=== PATIENT | male | born 1995 | race African-American/Black ===

== ENCOUNTER 2019-09-28 18:03 | Emergency (ER) | payer OTHER ==
[2019-09-28] MEDS ORDERED: ONDANSETRON 4 MG/2 ML VIAL ONE (18:54)
[2019-09-28] MEDS ORDERED: NA CHLORIDE 0.9% 1,000 ML ONE (18:54)
[2019-09-28] MEDS ORDERED: MORPHINE 2 MG/ML SYR ONE (18:55)
[2019-09-28] MEDS ORDERED: FAMOTIDINE 20 MG/2 ML VIAL IV ONE (18:55)
[2019-09-28 19:15] LABS: Absolute Lymphocytes (CBC) 0.8 K/uL (0.7-4.9); Basophils % 0.9 % (0-1.3); Hematocrit 48.6 % (39.6-49.0); Lymphocytes % 10.3 % (15.3-44.8); MPV 7.7 fL (7.6-11.3); RBC Red Blood Cell Count 5.54 M/uL (4.33-5.43)
[2019-09-28 19:33] LABS: ALT/SGPT 91 U/L (12-78); AST/SGOT 47 U/L (15-37); Albumin 4.2 g/dL (3.4-5.0); Alkaline Phosphatase 85 U/L (45-117); BUN Blood Urea Nitrogen 10 mg/dL (7-18); Bicarbonate 26 mmol/L (21-32); Bilirubin Direct 0.1 mg/dL (0-0.2); Bilirubin Total 0.4 mg/dL (0.2-1.0); Glucose Level 116 mg/dL (74-106); Lipase 61 U/L (73-393); Potassium 3.6 mmol/L (3.5-5.1); Protein, Total 7.9 g/dL (6.4-8.2); Sodium Level 138 mmol/L (136-145)
--- NOTE | 2019-09-28 20:09 | RAD REPORT ---
EXAM DESCRIPTION: CT - Abdomen Pelvis W Contrast - 09/28/2019 7:51 pm CLINICAL HISTORY: Abdominal pain COMPARISON: none. TECHNIQUE: Computed axial tomography of the abdomen pelvis was obtained. 100 cc Isovue-300 was admin istered intravenously. Oral contrast was not requested which limits evaluation of bowel. All CT scans are performed using dose optimization technique as appropriate and may include automated exposure control or mA/KV adjustment according to patient size. FINDINGS: The liver, spleen, pancreas, adrenal and kidneys appear unremarkable. There is no evidence of diverticulitis. The appendix is not clearly seen. No ascites A moderate amount stool is present throughout the colon IMPRESSION: Moderate amount of stool present throughout the colon
--- NOTE | 2019-09-28 20:30 | ER ---
Nurse's Notes [facility] Name: Greg Silva Age: 24 yrs Sex: Male : 1995 Arrival Date: 09/28/2019 Time: 18:11 Bed 5 Private MD: Diagnosis: Upper abdominal pain, unspecified;Nausea and vomiting Presentation: 09/28 18:12 Presenting complaint: EMS states: Pt from [facility], reports epigastric pain that ph radiates to boo upper quadrants and back, also reports N/V, denies diarrhea. Transition of care: patient was not received from another setting of care. Onset of symptoms was September 28, 2019. Risk Assessment: Do you want to hurt yourself or someone else? Patient reports no desire to harm self or others. Initial Sepsis Screen: Does the patient meet any 2 criteria? No. Patient's initial sepsis screen is negative. Does the patient have a suspected source of infection? No. Patient's initial sepsis screen is negative. Care prior to arrival: None. 18:12 Method Of Arrival: EMS: [facility] 18:12 Acuity: JARRED 3 ph Triage Assessment: 18:15 General: Appears in no apparent distress. uncomfortable, Behavior is cooperative, ph anxious, restless. Pain: Complains of pain in epigastric area Pain radiates to right upper quadrant and left upper quadrant. Neuro: Level of Consciousness is awake, alert, obeys commands, Oriented to person, place, time, situation. Cardiovascular: Capillary refill < 3 seconds in bilateral fingers Patient's skin is warm and dry. Respiratory: Airway is patent Respiratory effort is even, unlabored, Respiratory pattern is regular, symmetrical. GI: Abdomen is flat, non-distended, Reports upper abdominal pain, epigastric pain, nausea, vomiting, Patient currently denies diarrhea. Derm: Skin is intact, is healthy with good turgor, Skin is pink, warm \T\ dry. 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 - Social history:: Smoking status: Patient/guardian denies using tobacco. - Ebola Screening: : No symptoms or risks identified at this time. Screenin:06 Abuse screen: Denies threats or abuse. Denies injuries from another. Nutritional ph screening: No deficits noted. Tuberculosis screening: No symptoms or risk factors identified. Fall Risk None identified. Assessment: 19:07 General: SEE TRIAGE ASSESSMENT. ph 19:25 General: Appears in no apparent distress. uncomfortable, Behavior is calm, cooperative, jd3 appropriate for age. Pain: Denies pain. Neuro: Level of Consciousness is awake, alert, obeys commands, Oriented to person, place, time, situation. Cardiovascular: Denies chest pain, Capillary refill < 3 seconds Patient's skin is warm and dry. Respiratory: Airway is patent Respiratory effort is even, unlabored, Respiratory pattern is regular, symmetrical, Denies cough, shortness of breath. GI: Abdomen is round non-distended, Abd is soft and non tender X 4 quads. Patient currently denies nausea, vomiting. : No signs and/or symptoms were reported regarding the genitourinary system. EENT: No signs and/or symptoms were reported regarding the EENT system. Derm: Skin is intact, Skin is dry, Skin is normal, Skin temperature is warm. Musculoskeletal: Circulation, motion, and sensation intact. Range of motion: intact in all extremities. 19:25 Reassessment: Patient states feeling better. jd3 20:21 Reassessment: Patient appears in no apparent distress at this time. Patient and/or jd3 family updated on plan of care and expected duration. Pain level reassessed. Patient is alert, oriented x 3, equal unlabored respirations, skin warm/dry/pink. Patient denies pain at this time. Patient states feeling better. 20:45 Reassessment: Patient appears in no apparent distress at this time. Patient and/or aj1 family updated on plan of care and expected duration. Pain level reassessed. Patient is alert, oriented x 3, equal unlabored respirations, skin warm/dry/pink. pt reporting understanding of discharge instructions. awaiting transportation with care home guards. Vital Signs: 18:14 Pulse 83; Resp 20; Temp 98.5; Pulse Ox 100% on R/A; Weight 83.91 kg; Height 5 ft. 9 in. ph (175.26 cm); Pain 10/10; 18:18 BP 154 / 74; ss 19:26 Pulse 71; Resp 17 S; Pulse Ox 100% on R/A; Pain 0/10; jd3 20:20 BP 119 / 86; Pulse 75; Resp 18 S; Pulse Ox 100% on R/A; jd3 18:14 Body Mass Index 27.32 (83.91 kg, 175.26 cm) ph ED Course: 18:11 Patient arrived in ED. ph 18:13 Triage completed. ph 18:16 Arm band placed on Patient placed in an exam room, on a stretcher, on pulse oximetry. ph 18:32 Buck Hines PA is PHCP. cp 18:32 Ajay Delgado MD is Attending Physician. cp 18:49 Marleni Urrutia, RN is Primary Nurse. ph 19:06 Patient has correct armband on for positive identification. Call light in reach. Side ph rails up X2. Pulse ox on. NIBP on. Door closed. Noise minimized. Cool cloth applied. 19:06 Initial lab(s) drawn, by ms, sent to lab. Inserted saline lock: 18 gauge in right ph antecubital area, using aseptic technique. Blood collected. 19:51 CT Abd/Pelvis - IV Contrast Only In Process Unspecified. EDMS 19:55 Primary Nurse role handed off by Marleni Urrutia, DOMINIC jd3 19:55 Brett Reyes, DOMINIC is Primary Nurse. jd3 20:42 No provider procedures requiring assistance completed. IV discontinued, intact, aj1 bleeding controlled, No redness/swelling at site. Pressure dressing applied. Administered Medications: 19:04 Drug: NS 0.9% 1000 ml Route: IV; Rate: 1 bolus; Site: right antecubital; ph 20:44 Follow up: Response: No adverse reaction; IV Status: Completed infusion; IV Intake: aj1 1000ml 19:05 Drug: Zofran 4 mg Route: IVP; Site: right antecubital; ph 19:43 Follow up: Response: No adverse reaction jd3 19:05 Drug: morphine 2 mg Route: IVP; Site: right antecubital; ph 19:43 Follow up: Response: Pain is decreased; RASS: Alert and Calm (0) jd3 19:05 Drug: Pepcid 20 mg Route: IVP; Site: right antecubital; ph 19:43 Follow up: Response: No adverse reaction jd3 20:42 Drug: GI Cocktail without - (Maalox Suspension 30 ml, Lidocaine Liquid 2 % 15 aj1 ml) Route: PO; 21:05 Follow up: Response: No adverse reaction jd3 Intake: 20:44 IV: 1000ml; Total: 1000ml. aj1 Outcome: 20:29 Discharge ordered by MD. dorado 20:43 Condition: stable aj1 20:43 Discharge instructions given to patient, care home Guards Instructed on discharge instructions, follow up and referral plans. medication usage, Demonstrated understanding of instructions, follow-up care, medications, Prescriptions given X 2. 21:05 Patient left the ED. aj1 21:05 Discharged to with care home guards jd3 Signatures: Dispatcher [employer] EDMary Rangel RN RN aj1 Rossy Cabrera RN Marleni Robin RN RN Buck Hanson PA PA cp Davies, Jonathon, RN RN jd3 Corrections: (The following items were deleted from the chart) 19:43 19:43 Response: Pain is decreased jd3 jd3 19:43 19:25 Pain: Complains of pain in abdomen jd3 jd3 19:43 19:25 GI: Abdomen is round non-distended, Reports upper abdominal pain, jd3 jd3 19:44 19:26 Pulse 71bpm; Resp 17bpm; Spontaneous; Pulse Ox 100% RA; jd3 jd3
--- NOTE | 2019-09-28 20:31 | EDPHYS ---
Physician Documentation [facility] Name: Greg Silva Age: 24 yrs Sex: Male : 1995 Arrival Date: 09/28/2019 Time: 18:11 Bed 5 Private MD: ED Physician Ajay Delgado HPI: 09/28 18:36 This 24 yrs old Black Male presents to ER via EMS with complaints of Epigastric Pain. cp 18:36 The patient presents with abdominal pain in the epigastric area. cp 18:36 Onset: The symptoms/episode began/occurred today. The symptoms do not radiate. cp Associated signs and symptoms: Pertinent positives: nausea and vomiting, Pertinent negatives: anorexia, blood in stools, chest pain, constipation, diarrhea, dysuria, fever, testicular pain. The symptoms are described as constant. Severity of pain: in the emergency department the pain is unchanged. 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 - Social history:: Smoking status: Patient/guardian denies using tobacco. - Ebola Screening: : No symptoms or risks identified at this time. ROS: 18:40 Constitutional: Negative for body aches, chills, fever. cp 18:40 Eyes: Negative for injury, pain, redness, and discharge. cp 18:40 Cardiovascular: Negative for chest pain. 18:40 Respiratory: Negative for cough, shortness of breath, wheezing. 18:40 Abdomen/GI: Positive for abdominal pain, nausea and vomiting, Negative for diarrhea, constipation, black/tarry stool, rectal bleeding. 18:40 Back: Negative for radiated pain. 18:40 : Negative for urinary symptoms, testicular pain 18:40 Neuro: Negative for altered mental status, headache. 18:40 All other systems are negative. Exam: 18:45 Constitutional: The patient appears in no acute distress, alert, awake, cp non-diaphoretic, non-toxic, well developed, well nourished, uncomfortable. 18:45 Head/Face: Normocephalic, atraumatic. cp 18:45 Eyes: Periorbital structures: appear normal, Conjunctiva: normal, no exudate, no injection, Sclera: no appreciated abnormality, Lids and lashes: appear normal, bilaterally. 18:45 ENT: External ear(s): are unremarkable, Nose: is normal, Mouth: is normal, Posterior pharynx: is normal, airway is patent, no erythema, no exudate. 18:45 Chest/axilla: Inspection: normal, Palpation: is normal, no crepitus, no tenderness. 18:45 Cardiovascular: Rate: normal, Rhythm: regular. 18:45 Respiratory: the patient does not display signs of respiratory distress, Respirations: normal, no use of accessory muscles, no retractions, no splinting, no tachypnea, labored breathing, is not present, Breath sounds: are clear throughout, no decreased breath sounds, no stridor, no wheezing. 18:45 Abdomen/GI: Inspection: abdomen appears normal, Bowel sounds: active, all quadrants, Palpation: soft, in all quadrants, severe abdominal tenderness, in the epigastric area, rebound tenderness, is not appreciated, voluntary guarding, is elicited in the epigastric area. 18:45 Back: pain, is absent, ROM is normal. Vital Signs: 18:14 Pulse 83; Resp 20; Temp 98.5; Pulse Ox 100% on R/A; Weight 83.91 kg; Height 5 ft. 9 in. ph (175.26 cm); Pain 10/10; 18:18 BP 154 / 74; ss 19:26 Pulse 71; Resp 17 S; Pulse Ox 100% on R/A; Pain 0/10; jd3 20:20 BP 119 / 86; Pulse 75; Resp 18 S; Pulse Ox 100% on R/A; jd3 18:14 Body Mass Index 27.32 (83.91 kg, 175.26 cm) ph MDM: 18:34 Patient medically screened. cp 18:50 Differential diagnosis: appendicitis, bowel obstruction, cholecystitis, Cholelithiasis, cp gastritis, GI Bleed, pancreatitis, Peptic Ulcer Disease, Perf. Duodenal Ulcer, Perf. Gastric Ulcer, Testicular Torsion, Ureterolithiasis, urinary tract infection. 20:28 Data reviewed: vital signs, nurses notes, lab test result(s), radiologic studies, CT cp scan. 20:28 Counseling: I had a detailed discussion with the patient and/or guardian regarding: the cp historical points, exam findings, and any diagnostic results supporting the discharge/admit diagnosis, lab results, radiology results, to return to the emergency department if symptoms worsen or persist or if there are any questions or concerns that arise at home. Response to treatment: the patient's symptoms have markedly improved after treatment. Special discussion: Based on the patient's Hx, exam, and Dx evaluation, there is no indication for emergent surgery or inpatient Tx. It is understood by the patient/guardian that if the Sx's persist or worsen they need to return immediately for re-evaluation. ED course: VSS. Pain and nausea markedly improved, vomiting resolved. Will discharge back to correctional facility for continued monitoring. 09/28 18:36 Order name: Basic Metabolic Panel; Complete Time: 20:02 cp 09/28 20:02 Interpretation: Normal except: GLUC 116. cp 09/28 18:36 Order name: CBC with Diff; Complete Time: 20:22 cp 09/28 20:22 Interpretation: Normal except: RBC 5.54; HORTENCIA% 78.6; LYM% 10.3. cp 09/28 18:36 Order name: Creatinine for Radiology; Complete Time: 20:02 cp 09/28 18:36 Order name: Hepatic Function; Complete Time: 20:02 cp 09/28 18:36 Order name: Lipase; Complete Time: 20:02 cp 09/28 18:36 Order name: CT Abd/Pelvis - IV Contrast Only; Complete Time: 20:21 cp 09/28 18:36 Order name: IV Saline Lock; Complete Time: 19:07 cp 09/28 18:36 Order name: Labs collected and sent; Complete Time: 19:07 cp 09/28 20:23 Order name: PO challenge; Complete Time: 20:33 cp Administered Medications: 19:04 Drug: NS 0.9% 1000 ml Route: IV; Rate: 1 bolus; Site: right antecubital; ph 20:44 Follow up: Response: No adverse reaction; IV Status: Completed infusion; IV Intake: aj1 1000ml 19:05 Drug: Zofran 4 mg Route: IVP; Site: right antecubital; ph 19:43 Follow up: Response: No adverse reaction jd3 19:05 Drug: morphine 2 mg Route: IVP; Site: right antecubital; ph 19:43 Follow up: Response: Pain is decreased; RASS: Alert and Calm (0) jd3 19:05 Drug: Pepcid 20 mg Route: IVP; Site: right antecubital; ph 19:43 Follow up: Response: No adverse reaction jd3 20:42 Drug: GI Cocktail without - (Maalox Suspension 30 ml, Lidocaine Liquid 2 % 15 aj1 ml) Route: PO; 21:05 Follow up: Response: No adverse reaction jd3 Disposition: 09/28/19 20:29 Discharged to Home. Impression: Upper abdominal pain, unspecified, Nausea and vomiting. - Condition is Stable. - Discharge Instructions: Abdominal Pain, Adult, Constipation, Adult, Nausea and Vomiting, Adult. - Prescriptions for Pepcid 20 mg Oral Tablet - take 1 tablet by ORAL route every 12 hours for 10 days; 20 tablet. Zofran 4 mg Oral Tablet - take 1 tablet by ORAL route every 12 hours As needed; 20 tablet. - Medication Reconciliation Form, Thank You Letter, Antibiotic Education, Prescription Opioid Use form. - Follow up: Emergency Department; When: As needed; Reason: Worsening of condition. - Problem is new. - Symptoms have improved. Addendum: 10/01/2019 06:48 Co-signature as Attending Physician, Ajay Delgado MD I agree with the assessment and k dr plan of care. Signatures: Dispatcher [employer] EDMS Mary Cisse RN RN aj1 Ajay Delgado MD MD [facility] Marleni Urrutia RN RN ph Flora, Buck, PA PA Brett Frye RN jd3 Corrections: (The following items were deleted from the chart) 09/28 20:22 20:22 Normal except: RBC 5.54. cp cp 20:29 20:29 09/28/2019 20:29 Discharged to Home. Impression: Upper abdominal pain, cp unspecified. Condition is Stable. Forms are Medication Reconciliation Form, Thank You Letter, Antibiotic Education, Prescription Opioid Use. Follow up: Emergency Department; When: As needed; Reason: Worsening of condition. Problem is new. Symptoms have improved. cp 21:05 20:29 09/28/2019 20:29 Discharged to Home. Impression: Upper abdominal pain, aj1 unspecified; Nausea and vomiting. Condition is Stable. Discharge Instructions: Abdominal Pain, Adult, Constipation, Adult. Prescriptions for Pepcid 20 mg Oral Tablet - take 1 tablet by ORAL route every 12 hours for 10 days; 20 tablet, Zofran 4 mg Oral Tablet - take 1 tablet by ORAL route every 12 hours As needed; 20 tablet. and Forms are Medication Reconciliation Form, Thank You Letter, Antibiotic Education, Prescription Opioid Use. Follow up: Emergency Department; When: As needed; Reason: Worsening of condition. Problem is new. Symptoms have improved. cp
[2019-09-28] MEDS ORDERED: MAGNES/ALUMIN/SIMET 30ML UCUP ONE (20:37)
[2019-09-28] MEDS ORDERED: LIDOCAINE VISCOUS 2% SOLN 15 ML UDC ONE (20:37)
[2019-09-28 22:50] VITALS: TEMP 98.5; O2SAT 100
[2019-09-28 22:53] VITALS: BP 119/86
== END 2019-09-28 21:05 | disposition home or self-care (01) ==
LOC: ER 18:03
DX: R11.2 Nausea with vomiting, unspecified (principal)
CPT/HCPCS: 96361; 85025; 80048; 36415; 80076; 83690; 74177; 96375; 96374; 99284; Q9967; J2405; J2270; J7030

== ENCOUNTER 2020-11-24 08:23 | Emergency (ER) | payer OTHER ==
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
[2020-11-24 10:28] VITALS: TEMP 98.3; O2SAT 100
[2020-11-24 10:29] VITALS: BP 122/75
== END 2020-11-24 10:24 | disposition home or self-care (01) ==
LOC: ER 08:23
DX: S05.12XA Contusion of eyeball and orbital tissues, left eye, initial encounter (principal); S40.011A Contusion of right shoulder, initial encounter; Y04.2XXA Assault by strike against or bumped into by another person, initial encounter; Y92.9 Unspecified place or not applicable
CPT/HCPCS: 70450; 70486; 73010; 76377; 99283